=== PATIENT | female | born 1995 | race Caucasian/White ===

== ENCOUNTER → 2017-09-08 | Outpatient (CLI) | payer OTHER ==
--- NOTE | 2017-09-08 09:36 | REP ---
ULTRASOUND LEFT BREAST: Patient reports a palpable abnormality in the left retroareolar region which is also tender for 3 weeks. Real-time sonographic evaluation of the left retroareolar region demonstrates dense fibroglandular tissue. There is no cystic or solid nodule. IMPRESSION: ACR 2 benign. Dense fibroglandular tissue in the left retroareolar region. No cystic or solid nodule. Signed by Gibson Mendez MD 09/08/2017 04:56 P
== END ==
LOC: M RAD 08:31
PROVIDERS: ATTEND Neuromusculoskeletal Medicine & OMM
DX: N63.0 Unspecified lump in unspecified breast (principal)

== ENCOUNTER 2017-11-09 10:13 | Emergency (ER) | payer OTHER ==
[2017-11-09 11:28] LABS: KETONE, URINE AUTO RFX NEGATIVE (NEGATIVE); LEUKOCYTE ESTERASE UR AUTO RFX NEGATIVE (NEGATIVE); NITRITE, URINE AUTO RFX NEGATIVE (NEGATIVE); RBC, URINE AUTO RFX 0 /HPF (0-3); SPECIFIC GRAVITY UR AUTO RFX 1.021 (1.002-1.035); SQUAM EPITHELIAL CELL UR AURFX 0 /HPF (0-6); WBC, URINE AUTO RFX 0 /HPF (0-3)
[2017-11-09 11:30] LABS: CONTROL LINE UCG INT CTR LINE PRESENT; URINE PREG TEST NEGATIVE (NEGATIVE)
== END 2017-11-09 13:14 | disposition home or self-care (01) ==
LOC: M ED 10:13
DX: N83.201 Unspecified ovarian cyst, right side (principal); F17.200 Nicotine dependence, unspecified, uncomplicated
CPT/HCPCS: 76856

== ENCOUNTER → 2017-11-16 | Outpatient (CLI) | payer OTHER ==
[~2017-11-16] MED LIST: CONRAY-43 43% 50ML VIAL (Q9960) As Ordered; PROHANCE 279.3MG/ML 5ML VIAL (A9576) As Ordered
== END ==
LOC: M RADPRO 13:41
DX: M25.551 Pain in right hip (principal)
CPT/HCPCS: 27093

== ENCOUNTER 2017-11-20 22:21 | Emergency (ER) | payer OTHER ==
[2017-11-21] MEDS: diphenhydrAMINE 50 MG CAP PO (01:10)
[2017-11-21] MEDS: predniSONE 20 MG TAB PO (01:10)
== END 2017-11-21 01:56 | disposition home or self-care (01) ==
LOC: M ED 22:21
DX: L50.9 Urticaria, unspecified (principal); J02.8 Acute pharyngitis due to other specified organisms; Z79.899 Other long term (current) drug therapy
CPT/HCPCS: 87880

== ENCOUNTER 2018-02-21 22:23 | Emergency (ER) | payer OTHER ==
[2018-02-22] MEDS: NS 1,000 ML IV ×2 (01:30)
[2018-02-22 01:52] LABS: BASO # 0.1 10^3/uL (0.0-0.2); BASO % 0.7 % (0.0-1.0); EOS # 0.6 10^3/uL (0.0-0.50); EOS % 6.8 % (0.0-3.0); HEMOGLOBIN 14.2 g/dl (12.0-15.5); IMMATURE GRANULOCYTE % 0.2 % (0-3.0); LYMPH # 3.4 10^3/uL (1.5-6.5); LYMPH % 37.3 % (24.0-44.0); MEAN CORPUSCULAR HEMOGLOBIN 29.5 pg (27.0-33.0); MEAN CORPUSCULAR HGB CONC 34.6 g/dl (32.0-36.5); MEAN CORPUSCULAR VOLUME 85.1 fl (80.0-96.0); MONO # 0.7 10^3/uL (0.0-0.8); MONO % 7.8 % (0.0-5.0); NEUTROPHILS # 4.4 10^3/uL (1.8-7.7); NEUTROPHILS % 47.2 % (36.0-66.0); PLATELET COUNT, AUTOMATED 227 10^3/uL (150-450); RED BLOOD COUNT 4.82 10^6/uL (4.00-5.40); RED CELL DISTRIBUTION WIDTH 12.3 % (11.5-14.5); WHITE BLOOD COUNT 9.2 10^3/uL (4.0-10.0)
[2018-02-22 02:09] LABS: CONTROL LINE HCG INT CTR LINE PRESENT; HCG, SERUM QUALITATIVE NEGATIVE (NEGATIVE)
[2018-02-22 02:16] LABS: ALBUMIN 3.9 GM/DL (3.2-5.2); ALKALINE PHOSPHATASE 76 U/L (45-117); ALT/SGPT 30 U/L (12-78); ANION GAP 5 MEQ/L (8-16); AST/SGOT 22 U/L (7-37); BILIRUBIN,DIRECT 0.1 MG/DL (0.0-0.2); BILIRUBIN,TOTAL 0.6 MG/DL (0.2-1.0); BLOOD UREA NITROGEN 16 MG/DL (7-18); CALCIUM LEVEL 9.3 MG/DL (8.5-10.1); CARBON DIOXIDE LEVEL 28 MEQ/L (21-32); CHLORIDE LEVEL 106 MEQ/L (98-107); CREATININE FOR GFR 0.82 MG/DL (0.55-1.30); GLUCOSE, FASTING 88 MG/DL (70-100); LIPASE 117 U/L (73-393); SODIUM LEVEL 139 MEQ/L (136-145); TOTAL PROTEIN 7.8 GM/DL (6.4-8.2)
== END 2018-02-22 03:14 | disposition home or self-care (01) ==
LOC: M ED 02-22 03:14
DX: K52.9 Noninfective gastroenteritis and colitis, unspecified (principal)
CPT/HCPCS: 83690

== ENCOUNTER 2018-05-17 20:18 | Emergency (ER) | payer OTHER ==
[2018-05-17] MEDS: PERCOCET 5MG/325MG TAB PO (21:12)
[2018-05-17] MEDS ORDERED: KETOROLAC 30 MG/ML VIAL (J1885) IV (21:15)
[2018-05-17 21:17] LABS: BASO # 0.1 10^3/uL (0.0-0.2); BASO % 0.5 % (0.0-1.0); EOS # 0.5 10^3/uL (0.0-0.50); EOS % 4.4 % (0.0-3.0); HEMATOCRIT 41.5 % (36.0-47.0); HEMOGLOBIN 14.1 g/dl (12.0-15.5); IMMATURE GRANULOCYTE % 0.5 % (0-3.0); LYMPH # 3.3 10^3/uL (1.5-6.5); LYMPH % 26.8 % (24.0-44.0); MEAN CORPUSCULAR HEMOGLOBIN 29.4 pg (27.0-33.0); MEAN CORPUSCULAR VOLUME 86.5 fl (80.0-96.0); MONO # 0.8 10^3/uL (0.0-0.8); MONO % 6.4 % (0.0-5.0); NEUTROPHILS # 7.5 10^3/uL (1.8-7.7); NEUTROPHILS % 61.4 % (36.0-66.0); PLATELET COUNT, AUTOMATED 248 10^3/uL (150-450); RED CELL DISTRIBUTION WIDTH 11.9 % (11.5-14.5); WHITE BLOOD COUNT 12.2 10^3/uL (4.0-10.0)
[2018-05-17] MEDS: KETOROLAC 30 MG/ML VIAL (J1885) IM (21:22)
[2018-05-17 21:40] LABS: CONTROL LINE HCG INT CTR LINE PRESENT; HCG, SERUM QUALITATIVE NEGATIVE (NEGATIVE)
[2018-05-17 21:43] LABS: ANION GAP 9 MEQ/L (8-16); BLOOD UREA NITROGEN 13 MG/DL (7-18); CALCIUM LEVEL 9.1 MG/DL (8.5-10.1); CARBON DIOXIDE LEVEL 25 MEQ/L (21-32); CHLORIDE LEVEL 106 MEQ/L (98-107); CREATININE FOR GFR 0.84 MG/DL (0.55-1.30); GLUCOSE, FASTING 92 MG/DL (70-100); POTASSIUM SERUM 3.8 MEQ/L (3.5-5.1); SODIUM LEVEL 140 MEQ/L (136-145)
== END 2018-05-17 23:35 | disposition home or self-care (01) ==
LOC: M ED 20:18
DX: N83.8 Other noninflammatory disorders of ovary, fallopian tube and broad ligament (principal)
CPT/HCPCS: J1885

== ENCOUNTER 2020-07-14 13:19 | Emergency (ER) | payer OTHER ==
[~2020-07-14] VITALS: Ht 165.1 cm; Wt 88.9 kg
[2020-07-14 13:19] VITALS: BP 134/80
[~2020-07-14 13:19] MED LIST changes: +BENA25CA4 PO; -CONRAY-43 43% 50ML VIAL (Q9960) As Ordered; +IBUP-1022 PO; +PEPC1TAB5 PO; +PERC5TAB12 PO; +PRED20TA PO; -PROHANCE 279.3MG/ML 5ML VIAL (A9576) As Ordered
[2020-07-14] MEDS ORDERED: CETI-24 PO (13:25)
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
== END 2020-07-14 18:36 | disposition home or self-care (01) ==
LOC: M ED 13:19
DX: S16.1XXA Strain of muscle, fascia and tendon at neck level, initial encounter (principal); V49.40XA Driver injured in collision with unspecified motor vehicles in traffic accident, initial encounter; Y92.410 Unspecified street and highway as the place of occurrence of the external cause

== ENCOUNTER → 2020-10-28 | Outpatient (CLI) | payer SELFPAY ==
[~2020-10-28] MED LIST changes: +CETI-24 PO
== END ==
LOC: M LABSMTC 13:25
PROVIDERS: ATTEND Pediatrics
DX: Z20.822 Contact with and (suspected) exposure to COVID-19 (principal)

== ENCOUNTER → 2022-04-01 | Outpatient (CLI) | payer OTHER | LOC: M RAD 17:32 | PROVIDERS: ATTEND Physician Assistant | DX: S93.691A Other sprain of right foot, initial encounter (principal) ==

== ENCOUNTER 2022-12-08 10:55 | Emergency (ER) | payer OTHER ==
[~2022-12-08] VITALS: Ht 165.1 cm; Wt 90.8 kg
[2022-12-08] MEDS ORDERED: ALBU8.5H (11:22)
[2022-12-08] MEDS ORDERED: URSO300C3 (11:22)
[2022-12-08] MEDS ORDERED: PHEN-935 PO (11:22)
[2022-12-08] MEDS ORDERED: ADDE20CA3 PO (11:22)
[2022-12-08] MEDS ORDERED: OMEP40CA5 (11:22)
[2022-12-08 12:25] LABS: BASO # 0.1 10^3/uL (0.0-0.2); BASO % 0.5 % (0.0-1.0); EOS # 0.4 10^3/uL (0.0-0.5); EOS % 3.9 % (0.0-3.0); HEMOGLOBIN 13.4 g/dl (12.0-15.5); LYMPH # 2.2 10^3/uL (1.5-5.0); LYMPH % 20.4 % (24.0-44.0); MEAN CORPUSCULAR HEMOGLOBIN 28.6 pg (27.0-33.0); MEAN CORPUSCULAR HGB CONC 32.7 g/dl (32.0-36.5); MEAN CORPUSCULAR VOLUME 87.4 fl (80.0-96.0); MONO # 0.7 10^3/uL (0.0-0.8); MONO % 6.1 % (2.0-8.0); NEUTROPHILS # 7.5 10^3/uL (1.5-8.5); NEUTROPHILS % 68.6 % (36.0-66.0); PLATELET COUNT, AUTOMATED 245 10^3/uL (150-450); RED BLOOD COUNT 4.69 10^6/uL (4.00-5.40); WHITE BLOOD COUNT 10.9 10^3/uL (4.0-10.0)
[2022-12-08 12:33] LABS: ERYTHROCYTE SEDIMENTATION RATE 68 mm/hr (0-20)
[2022-12-08 12:49] LABS: MAGNESIUM LEVEL 1.7 MG/DL (1.8-2.4)
[2022-12-08 12:53] LABS: HCG, SERUM QUALITATIVE NEGATIVE (NEGATIVE); THYROID STIMULATING HORMONE 0.368 uIU/ML (0.55-4.78)
[2022-12-08] MEDS ORDERED: METOCLOPRAMIDE INJ 10MG/2ML VIAL IV ONE (13:55)
[2022-12-08] MEDS ORDERED: NS 1,000 ML IV ONE (13:55)
[2022-12-08] MEDS ORDERED: KETOROLAC 30 MG/ML 1ML VIAL IV ONE (13:55)
[2022-12-08 14:45] LABS: FREE T4 1.11 NG/DL (0.89-1.76)
[2022-12-08 15:07] LABS: RSV AMPLIFICATION NEGATIVE (NEGATIVE)
[2022-12-08] MEDS ORDERED: AMOX875T2 PO (16:14)
[2022-12-08] MEDS ORDERED: PRED20TA PO (16:14)
[2022-12-08] MEDS ORDERED: AUGMENTIN 875 MG TAB PO ONE (16:20)
[2022-12-08 16:24] VITALS: BP 121/75
== END 2022-12-08 16:40 | disposition home or self-care (01) ==
LOC: M ED 10:55
DX: J01.90 Acute sinusitis, unspecified (principal); Z98.84 Bariatric surgery status; Z79.899 Other long term (current) drug therapy
CPT/HCPCS: 36415; 70450; 72125; 80047; 83735; 84439; 84443; 84703; 85025; 85652; 86140; 87631; 87880; 93005; 96374; 96375; 99284; J1100; J1885; J2765

== ENCOUNTER → 2024-10-21 | Outpatient (CLI) | payer OTHER ==
[~2024-10-21] MED LIST changes: +ADDE20CA3 PO; +ALBU8.5H; +AMOX875T2 PO; +OMEP40CA5; +PHEN-935 PO; +URSO300C3
== END ==
LOC: M WHC 14:06
PROVIDERS: ATTEND Family Medicine
DX: N63.42 Unspecified lump in left breast, subareolar (principal); N63.23 Unspecified lump in the left breast, lower outer quadrant

== ENCOUNTER → 2024-10-31 | Outpatient (CLI) | payer OTHER ==
[2024-10-31 10:15] VITALS: TEMP 98.9
[2024-10-31 10:50] VITALS: BP 112/68; O2SAT 99
== END ==
LOC: M WHCPRO 10:03
PROVIDERS: ATTEND Family Medicine
DX: R92.8 Other abnormal and inconclusive findings on diagnostic imaging of breast (principal); N63.23 Unspecified lump in the left breast, lower outer quadrant